=== PATIENT | male | born 1990 | race Caucasian/White ===

== ENCOUNTER 2018-06-23 00:29 | Emergency (ER) | payer SELFPAY ==
[2018-06-23] MEDS ORDERED: DIPHENHYDRAMINE HCL 50 MG/ML VIAL IM ONE (01:18)
[2018-06-23] MEDS ORDERED: HALOPERIDOL LACTATE INJ 5 MG/1 ML VIAL IM ONE (01:18)
[2018-06-23] MEDS ORDERED: LORAZEPAM INJ 2 MG/1 ML VIAL IM ONE (01:18)
--- NOTE | 2018-06-23 01:19 | ER Document Report ---
Addendum entered and electronically signed by STEVE LUDWIG DO 06/23/18 11:52: Discharge - Discharge Clinical Impression: Agitation requiring sedation protocol Alcohol intoxication Qualifiers: Complication of substance-induced condition: uncomplicated Qualified Code(s): F10.920 - Alcohol use, unspecified with intoxication, uncomplicated Condition: Stable Disposition: HOME, SELF-CARE Additional Instructions: You have been evaluated both medical and behavioral health teams have been deemed appropriate for discharge. You are highly encouraged to follow-up with substance abuse treatment. You have been provided resources of both detox and a list of area providers including mobile crisis contact information. ACUTE ALCOHOL INTOXICATION and ALCOHOL ABUSE: Your evaluation revealed very high levels of alcohol. You can from drinking a large amount of alcohol rapidly! Further, there's the risk of falls, traffic accidents, and fights. A high portion (about 50 percent) of the serious injuries seen in hospital emergency rooms are caused by alcohol. Alcohol overdosage is usually due to an underlying emotional or psychiatric problem. You may benefit from counselling. If "binge" drinking is an ongoing problem for you, or if you drink ANY AMOUNT of alcohol EVERY day, you most likely have a tendency to alcoholism. You should avoid alcohol totally. We can refer you for treatment. Persons with alcohol problems are often also prone to other addictions -- you should discuss any use of medications or drugs with the doctor. You should be watched at home for the next several hours by someone who has not been drinking. Get extra fluids for the next 24 hours. Call the doctor if there is repeated vomiting, increasing headache, decreasing level of alertness, or any other worsening. CHRONIC ALCOHOLISM and ALCOHOL ABUSE: Your evaluation reveals evidence of chronic alcoholism, an addiction to alcohol. The tendency to alcoholism may be inherited. Chronic use of alcohol weakens muscles, causes fatty deposits in the liver, damages the stomach, makes you more prone to infections, and can cause defects in unborn children. In the long run, brain atrophy and cirrhosis of the liver result. You are also at greater risk for certain types of cancer, such as cancer of the mouth, throat, stomach, and liver. Counselling services are available to help you. In-hospital treatment programs often help. Support groups such as Alcoholics Anonymous can be very useful in beating this addiction. Your physician can make a referral for you. As alcoholics often are prone to other addictions, you should discuss your use of any other medications with the doctor. ALCOHOL WITHDRAWAL: Your symptoms are caused by alcohol withdrawal. After a period of frequent drinking, the brain and body are changed by the alcohol. When you quit or reduce your drinking, the nervous system becomes unstable. Withdrawal symptoms can start a few hours after your last drink, but sometimes don't begin until a couple of days later. Symptoms can include shakiness, sweating, insomnia, nausea, vomiting, fearfulness, hallucinations, and seizures. In addition to the acute effects of alcohol withdrawal, we often have to deal with the medical effects of alcoholism. These problems often include dehydration, stomach irritation, intestinal bleeding, low blood sugar, liver disease, and pancreas inflammation. Treatment for alcohol withdrawal includes mild sedatives, vitamins, and fluids. You need to be with someone who can help if symptoms become severe. Many patients can withdraw at home. Admission to the hospital or a detox facility may be necessary if withdrawal symptoms are severe and uncontrollable. Abstaining from alcohol is the only effective long-term treatment. If you start drinking again, you will not be able to control yourself after the first drink. Treatment programs are available. In addition, many alcoholics benefit f rom Alcoholics Anonymous or other support groups available through your counselor or yazdanism cutter hand. AL-ANON and ALA-TEEN are support groups for friends and family members of an alcoholic. Go to the emergency room if you develop persistent vomiting, severe abdominal pain, fever, shortness of breath, hallucinations, uncontrollable tremors, or seizures. FOLLOW-UP CARE: If you have been referred to a physician for follow-up care, call the physicians office for an appointment as you were instructed or within the next two days. If you experience worsening or a significant change in your symptoms, notify the physician immediately or return to the Emergency Department at any time for re-evaluation. Referrals: [facility] [Outside] - Follow up as needed Addendum entered and electronically signed by VIVIANA BATES LCSWA 06/23/18 11:49: Discharge - Discharge Clinical Impression: Agitation requiring sedation protocol Alcohol intoxication Qualifiers: Complication of substance-induced condition: uncomplicated Qualified Code(s): F10.920 - Alcohol use, unspecified with intoxication, uncomplicated Condition: Stable Disposition: HOME, SELF-CARE Additional Instructions: You have been evaluated both medical and behavioral health teams have been deemed appropriate for discharge. You are highly encouraged to follow-up with substance abuse treatment. You have been provided resources of both detox and a list of area providers including mobile crisis contact information. ACUTE ALCOHOL INTOXICATION and ALCOHOL ABUSE: Your evaluation revealed very high levels of alcohol. You can from drinking a large amount of alcohol rapidly! Further, there's the risk of falls, traffic accidents, and fights. A high portion (about 50 percent) of the serious injuries seen in hospital emergency rooms are caused by alcohol. Alcohol overdosage is usually due to an underlying emotional or psychiatric problem. You may benefit from counselling. If "binge" drinking is an ongoing problem for you, or if you drink ANY AMOUNT of alcohol EVERY day, you most likely have a tendency to alcoholism. You should avoid alcohol totally. We can refer you for treatment. Persons with alcohol problems are often also prone to other addictions -- you should discuss any use of medications or drugs with the doctor. You should be watched at home for the next several hours by someone who has not been drinking. Get extra fluids for the next 24 hours. Call the doctor if there is repeated vomiting, increasing headache, decreasing level of alertness, or any other worsening. CHRONIC ALCOHOLISM and ALCOHOL ABUSE: Your evaluation reveals evidence of chronic alcoholism, an addiction to alcohol. The tendency to alcoholism may be inherited. Chronic use of alcohol weakens muscles, causes fatty deposits in the liver, damages the stomach, makes you more prone to infections, and can cause defects in unborn children. In the long run, brain atrophy and cirrhosis of the liver result. You are also at greater risk for certain types of cancer, such as cancer of the mouth, throat, stomach, and liver. Counselling services are available to help you. In-hospital treatment programs often help. Support groups such as Alcoholics Anonymous can be very useful in beating this addiction. Your physician can make a referral for you. As alcoholics often are prone to other addictions, you should discuss your use of any other medications with the doctor. ALCOHOL WITHDRAWAL: Your symptoms are caused by alcohol withdrawal. After a period of frequent drinking, the brain and body are changed by the alcohol. When you quit or reduce your drinking, the nervous system becomes unstable. Withdrawal symptoms can s tart a few hours after your last drink, but sometimes don't begin until a couple of days later. Symptoms can include shakiness, sweating, insomnia, nausea, vomiting, fearfulness, hallucinations, and seizures. In addition to the acute effects of alcohol withdrawal, we often have to deal with the medical effects of alcoholism. These problems often include dehydration, stomach irritation, intestinal bleeding, low blood sugar, liver disease, and pancreas inflammation. Treatment for alcohol withdrawal includes mild sedatives, vitamins, and fluids. You need to be with someone who can help if symptoms become severe. Many patients can withdraw at home. Admission to the hospital or a detox facility may be necessary if withdrawal symptoms are severe and uncontrollable. Abstaining from alcohol is the only effective long-term treatment. If you start drinking again, you will not be able to control yourself after the first drink. Treatment programs are available. In addition, many alcoholics benefit from Alcoholics Anonymous or other support groups available through your counselor or yazdanism cutter hand. AL-ANON and FAYE-TEEN are support groups for friends and family members of an alcoholic. Go to the emergency room if you develop persistent vomiting, severe abdominal pain, fever, shortness of breath, hallucinations, uncontrollable tremors, or seizures. FOLLOW-UP CARE: If you have been referred to a physician for follow-up care, call the physicians office for an appointment as you were instructed or within the next two days. If you experience worsening or a significant change in your symptoms, notify the physician immediately or return to the Emergency Department at any time for re-evaluation. Referrals: [facility] [Outside] - Follow up as needed Original Note: ED Psych Disorder / Suicide - General Chief Complaint: Psych Problem Stated Complaint: IVC Time Seen by Provider: 06/23/18 01:18 Mode of Arrival: Ambulatory Information source: Patient, Friend, Law Enforcement Notes: HISTORY OF PRESENT ILLNESS: Patient is a 28-year-old male with a past medical history of chronic substance abuse who presents with alcohol intoxication and combative behavior who was brought in by police after reportedly the patient broke up with his girlfriend and then threatened to harm her and other friends. Patient is currently involuntarily committed. Onset: Prior to arrival Provocation: Alcohol intoxication Quality: Agitation Radiation: Global Severity: Severe Timing: Constant SI/HI: None Hallucinations: None Current therapist: None Current treatment: None REVIEW OF SYSTEMS: CONSTITUTIONAL : Denies fever or chills, no sweats. Denies recent illness. EENT: Denies eye, ear, throat, or mouth pain or symptoms. Denies nasal or sinus congestion. CARDIOVASCULAR: Denies chest pain. RESPIRATORY: Denies cough, cold, or chest congestion. Denies shortness of breath, difficulty breathing, or wheezing. GASTROINTESTINAL: Denies abdominal pain. Denies nausea, vomiting, or diarrhea. Denies constipation. GENITOURINARY: Denies difficulty urinating, painful urination, burning, frequency, or blood in urine. FEMALE GENITOURINARY: Denies vaginal bleeding, abnormal or irregular periods. Last menstrual period MUSCULOSKELETAL: Denies neck or back pain or joint pain or swelling. SKIN: Denies rash or skin lesions. HEMATOLOGIC : Denies easy bruising or bleeding. LYMPHATIC: Denies swollen, enlarged glands. NEUROLOGICAL: Denies altered mental status or loss of consciousness. Denies headache. Denies weakness or paralysis or loss of use of either side. Denies problems with gait or speech. Denies sensory or motor loss. PSYCHIATRIC: Positive for alcohol intoxication. Positive for belligerent behavior and communicating threats. All other systems reviewed and negative. PHYSICAL EXAMINATION: GENERAL: Intoxicated-appearing and combative, well-nourished and in no acute distress. HEAD: Atraumatic, normocephalic. No scalp deformity, depression, or crepitance. EYES: Pupils are 3 mm and equal/round/reactive to light, extraocular movements intact, sclera anicteric, conjunctiva are normal. ENT: Nares patent bilaterally, oropharynx clear without exudates or palatal petechia. Moist mucous membranes. No tonsil hypertrophy. NECK: Normal range of motion, supple without lymphadenopathy. LUNGS: Breath sounds present, equal, and clear to auscultation bilaterally. No wheezes, rales, or rhonchi. HEART: Regular rate and rhythm without murmurs, rubs, or gallops. 2+ peripheral pulses. Normal capillary refill. ABDOMEN: Soft, nontender, nondistended. Normoactive bowel sounds. No guarding, no rebound. No masses appreciated. BACK: Normal contour, no midline tenderness. Rectal exam deferred. EXTREMITIES: Normal range of motion, no pitting or edema. No cyanosis. NEUROLOGICAL: No focal neurological deficits. Moves all extremities spontaneously and on command. PSYCH: Agitated mood, normal affect. No suicidal thoughts/ideations. No homocidal thoughts/ideations. No hallucinations. SKIN: Warm, dry, normal turgor, no rashes or lesions noted. ASSESSMENT AND PLAN: This patient is a 28-year-old male who presents with intoxication and agitation/combative behavior. 1. Will obtain medical clearance and maintain involuntary commitment. 2. Will observe into the morning and have patient evaluated by psychiatric team. TRAVEL OUTSIDE OF THE [place] IN LAST 30 DAYS: No - Related Data Allergies/Adverse Reactions: No Known Allergies Allergy (Unverified 06/23/18 00:36) Past Medical History - General Information source: Patient, Friend, Law Enforcement Cannot obtain history due to: Uncooperative - Social History Smoking Status: Current Every Day Smoker Chew tobacco use (# tins/day): No Frequency of alcohol use: Heavy Drug Abuse: Marijuana Lives with: Family Family History: Reviewed & Not Pertinent Patient has suicidal ideation: No Patient has homicidal ideation: No - Medical History Medical History: Negative - Past Medical History Cardiac Medical History: Reports: None Pulmonary Medical History: Reports: None EENT Medical History: Reports: None Neurological Medical History: Reports: None Endocrine Medical History: Reports: None Renal/ Medical History: Reports: None Malignancy Medical History: Reports None GI Medical History: Reports: None Musculoskeletal Medical History: Reports None Skin Medical History: Reports None Psychiatric Medical History: Reports: None Traumatic Medical History: Reports: None Infectious Medical History: Reports: None Surgical Hx: Negative Past Surgical History: Reports: None - Immunizations Immunizations up to date: Yes Hx Diphtheria, Pertussis, Tetanus Vaccination: Yes History of Influenza Vaccine for 01/2017 - 06/2017 Season: Unknown Physical Exam - Vital signs Vitals: Temp Pulse Resp BP Pulse Ox 98.4 F 105 H 16 118/78 98 06/23/18 00:35 06/23/18 00:35 06/23/18 00:35 06/23/18 00:35 06/23/18 00:35 Course - Re-evaluation Re-evalutation: 06/23/18 05:04 Patient is heavily intoxicated and will be evaluated by psychiatric team in the morning. - Vital Signs Vital signs: Temp Pulse Resp BP Pulse Ox 98.4 F 105 H 16 118/78 98 06/23/18 00:35 06/23/18 00:35 06/23/18 00:35 06/23/18 00:35 06/23/18 00:35 - Laboratory Result Diagrams: 06/23/18 01:45 06/23/18 01:45 Laboratory results interpreted by me: 06/23/18 01:45 Sodium 148.7 H BUN 4 L Glucose 127 H Salicylates < 1.0 L Acetaminophen < 10 L Serum Alcohol 334 H* - EKG Interpretation by Me EKG shows normal: Sinus rhythm Rate: Tachycardia Rhythm: NSR [place]/QRS: No: Right axis deviation, Left axis deviation, RBBB, LBBB, IVCD, LAHB/LAFB, LPHB/LPFB, Bifasicular block Voltage: No: Increased voltage, Consistant with LVH, Decreased voltage, Throughout, Limb leads P Waves: No: NAHED, LAE, Absent, AV Dissociation, Other Heart block present: No: 1st Degree, Mobitz 1, Mobitz 2, CHB (3rd degree block) When compared to previous EKG there are: Previous EKG unavailable Discharge - Discharge Clinical Impression: Agitation requiring sedation protocol Alcohol intoxication Qualifiers: Complication of substance-induced condition: uncomplicated Qualified Code(s): F10.920 - Alcohol use, unspecified with intoxication, uncomplicated Condition: Stable Disposition: PSYCH HOSP/UNIT
[2018-06-23] MEDS ORDERED: NICOTINE 21 MG/24 HR PATCH.TD24 TD ONE (01:22)
[2018-06-23 02:00] LABS: ABSOLUTE EOSINOPHILS # (AUTO) 0.1 10^3/uL (0.0-0.6); ABSOLUTE LYMPHOCYTES (AUTO) 1.8 10^3/uL (0.5-4.7); ABSOLUTE MONOCYTES (AUTO) 0.5 10^3/uL (0.1-1.4); ABSOLUTE NEUT (AUTO) 5.4 10^3/uL (1.7-8.2); BASOPHILS % (AUTO) 0.4 % (0-2); EOSINOPHILS % (AUTO) 0.7 % (0-6); HEMATOCRIT 48.3 % (37.9-51.0); HEMOGLOBIN 16.7 g/dL (13.5-17.0); LYMPHOCYTES % (AUTO) 22.7 % (13-45); MEAN CORPUSCULAR HEMOGLOBIN 32.6 pg (27.0-33.4); MEAN CORPUSCULAR HGB CONC 34.5 g/dL (32.0-36.0); MEAN CORPUSCULAR VOLUME 94 fl (80-97); MONOCYTES % (AUTO) 6.3 % (3-13); PLATELET COUNT 301 10^3/uL (150-450); RED BLOOD COUNT 5.12 10^6/uL (4.35-5.55); RED CELL DISTRIBUTION WIDTH 13.1 % (11.5-14.0); SEGMENTED NEUTROPHILS % (AUTO) 69.9 % (42-78); TOTAL CELLS COUNTED % (AUTO) 100 %; WHITE BLOOD COUNT 7.7 10^3/uL (4.0-10.5)
[2018-06-23 02:15] LABS: ACETAMINOPHEN < 10 ug/mL (10-30); ALANINE AMINOTRANSFERASE 42 U/L (21-72); ALBUMIN 4.8 g/dL (3.5-5.0); ALKALINE PHOSPHATASE 104 U/L (38-126); ANION GAP 17 (5-19); ASPARTATE AMINO TRANSFERASE 47 U/L (17-59); BILIRUBIN,DIRECT 0.3 mg/dL (0.0-0.4); BILIRUBIN,TOTAL 0.3 mg/dL (0.2-1.3); BLOOD UREA NITROGEN 4 mg/dL (7-20); CALCIUM 9.5 mg/dL (8.4-10.2); CARBON DIOXIDE 25 mmol/L (22-30); CHLORIDE 107 mmol/L (98-107); GLUCOSE 127 mg/dL (75-110); POTASSIUM 4.3 mmol/L (3.6-5.0); SALICYLATE < 1.0 mg/dL (2.0-20.0); SODIUM 148.7 mmol/L (137-145); TOTAL PROTEIN 6.9 g/dL (6.3-8.2)
[2018-06-23 02:40] LABS: ALCOHOL 334 mg/dL (NONE DETECTED)
[2018-06-23 10:55] LABS: APPEARANCE,URINE CLEAR; BILIRUBIN,URINE NEGATIVE (NEGATIVE); COLOR,URINE YELLOW; GLUCOSE, URINE NEGATIVE (NEGATIVE); KETONES,URINE NEGATIVE (NEGATIVE); LEUKOCYTE ESTERASE,URINE NEGATIVE (NEGATIVE); NITRITE,URINE NEGATIVE (NEGATIVE); PROTEIN,URINE NEGATIVE (NEGATIVE); URINE SPECIFIC GRAVITY 1.012; UROBILINOGEN,URINE NEGATIVE mg/dL (<2.0)
[2018-06-23 11:17] LABS: URINE AMPHETAMINES SCREEN NEGATIVE; URINE BARBITURATES SCREEN NEGATIVE; URINE BENZODIAZEPINES SCREEN NEGATIVE; URINE COCAINE SCREEN NEGATIVE; URINE MARIJUANA (THC) SCREEN UNCONFIRMED POSITIVE; URINE METHADONE SCREEN NEGATIVE; URINE PHENCYCLIDINE SCREEN NEGATIVE
--- NOTE | 2018-06-23 11:51 | ER Document Report ---
Doctor's Note Notes: 06/23/18 11:49 Patient seen and examined. He was brought in ER for alcohol intoxication last night. He is not very forthcoming with his history. I do strongly suspect a history of alcohol dependence and abuse. He is not interested currently in detox at this time. His sister is here. She is asking about outpatient luis m atments. She feels safe bringing him home and the patient feel safe being discharged. Pupils are equal, round, reactive to light. No tremor, skin is warm and dry. Heart is regular rate and rhythm, lungs are clear to auscultation bilaterally. Patient has a mildly defensive stance, short answers, but is cooperative with examiner. Plan is to discharge patient. He is not interested in inpatient rehabilitation at this time. He is given instructions regarding alcohol dependence. At this time he still does meet the legal definition of intoxication, but he is appropriate and family feels comfortable taking him home. He is to return to the ED with worsening or new concerning symptoms of any sort.
[2018-06-23 12:15] VITALS: BP 115/81
--- NOTE | 2018-06-23 16:37 | PSYCHOLOGICAL NOTE ---
Psych Note - Psych Note Date seen by psych provider: 06/23/18 Time seen by psych provider: 11:00 Psych Note: Reason for consult: IVC Patient is a 28-year-old male with a past medical history of chronic substance abuse who presents with alcohol intoxication and combative behavior who was brought in by police after reportedly the patient broke up with his girlfriend and then threatened to harm her and other friends. Patient reports he is fairly sure that he came to [facility] because of suicidal ideation. He states that "they said I had a knife." He confirms that he did and remembers having a knife however denies threatening anybody or himself with it. He reports that his girlfriend said that he was suicidal however adamantly denies he said anything to indicate he wanted to harm himself. Patient denies having any mental health diagnosis. Clinician spoke with patient's sister. She requests additional assistance on substance abuse treatment, and sober living for the patient. She confirms she will transport patient home; she denies having any further concerns. Patient is alert and orientated to person, place, time and circumstance. Mood is euthymic with congruent affect. Patient denies suicidal and homicidal ideation; clinician notes patient is no longer under the influence. Delusions are absent behaviors congruent with intact reality based presentation i.e. organized and linear thought process. Eye contact is well-maintained. Conversational speech is within normal rate, tone and prosody. Intellectual abilities appear to be within the average range. Attention and concentration are fair. Insight, judgment, impulse control are fair. No medication recommendations at this time Substance abuse; alcohol Impression\\plan: Patient is recommended for rescind of IVC and is cleared from acute psychiatric services. He no longer meets IVC criteria per [place] GS 122C. Patient is no longer the influence and denies suicidal homicidal ideation. Patient reports that while he did have a knife in his hand he at no time threatened to harm himself or others. He reports that his girlfriend and he were an argument. Patient's sister requests substance abuse treatment information; this was provided. Patient agrees to discuss with his family recei [facility] substance abuse treatment, he declined assistance from clinician. Dr. Gorman was consulted and the care management this patient; attending physicians in agreement with recommendations and disposition.
--- NOTE | 2018-06-23 19:18 | EKG REPORT ---
SEVERITY:- BORDERLINE ECG - SINUS TACHYCARDIA VENTRICULAR PREMATURE COMPLEX RIGHT AXIS DEVIATION : Confirmed by: Violeta Morin MD 23-Jun-2018 19:17:08
== END 2018-06-23 12:15 | disposition home or self-care (01) ==
LOC: ER 00:29
DX: F10.120 Alcohol abuse with intoxication, uncomplicated (principal); R45.1 Restlessness and agitation; F17.200 Nicotine dependence, unspecified, uncomplicated; F12.10 Cannabis abuse, uncomplicated; R00.0 Tachycardia, unspecified
CPT/HCPCS: 93005; 99285; 96372; 36415; 80307 ×4; 85025; 80053; 81001; 93010; J1200; J1630; J2060

== ENCOUNTER 2019-02-11 13:06 | Emergency (ER) | payer OTHER ==
--- NOTE | 2019-02-11 14:26 | ER Document Report ---
ED Medical Screen (RME) - General Chief Complaint: Alcohol Withdrawl Stated Complaint: DETOX Time Seen by Provider: 02/11/19 14:16 Notes: 28-year-old male presents to the emergency department requesting help for alcoholism. He states that his last drink was last night and he typically drinks "whatever I can get my hands on". Lately it is been about 3 bottles of wine a day but just prior to that he was drinking hard liquor. Patient is very slow to respond and staring off into the distance. Patient states he has been drinking heavily since he was 16 or 17 years old. Patient does not have a good social support system. Exam: Patient appears unkempt and has very poor eye contact, patient's speech is delayed but answers questions appropriately, patient is tachycardic, no asterixis NEURO: A &O X 3, normal speech, normal gait, PERRL, EOMI, SILT, follows commands in all 4 extremities, no gross abnormalities of cranial nerves, no focal neuro deficits, no pronator drift, [id number] testing normal, [id number] normal, banking and finance instructor strength 5/5 bilateral, 5/5 strength in both proximal and distal upper and lower extremities I have greeted and performed a rapid initial assessment of this patient. A comprehensive ED assessment and evaluation of the patient, analysis of test results and completion of medical decision making process will be conducted by an additional ED providers. TRAVEL OUTSIDE OF THE [place] IN LAST 30 DAYS: No - Related Data Allergies/Adverse Reactions: No Known Allergies Allergy (Unverified 06/23/18 00:36) Past Medical History - Social History Frequency of alcohol use: Heavy Drug Abuse: None Renal/ Medical History: Denies: Hx Peritoneal Dialysis - Immunizations Immunizations up to date: Yes Hx Diphtheria, Pertussis, Tetanus Vaccination: Yes Physical Exam - Vital signs Vitals: Temp Pulse Resp BP Pulse Ox 97.8 F 108 H 18 128/82 H 95 02/11/19 13:29 02/11/19 13:29 02/11/19 13:29 02/11/19 13:29 02/11/19 13:29 Course - Vital Signs Vital signs: Temp Pulse Resp BP Pulse Ox 97.8 F 108 H 18 128/82 H 95 02/11/19 13:29 02/11/19 13:29 02/11/19 13:29 02/11/19 13:29 02/11/19 13:29
[2019-02-11] MEDS ORDERED: FOLIC ACID 1 MG TABLET PO ONE (14:27)
[2019-02-11] MEDS ORDERED: THIAMINE HCL 100 MG TABLET PO ONE (14:27)
[2019-02-11] MEDS ORDERED: DIAZEPAM INJ 10 MG/2 ML DISP.SYRIN IV ONE (14:28)
[2019-02-11] MEDS: NORMAL SALINE 1000 ML 1,000 ML IV PRN ×2 (15:12→15:54)
[2019-02-11 15:39] LABS: ABSOLUTE BASOPHILS # (AUTO) 0.1 10^3/uL (0.0-0.2); ABSOLUTE MONOCYTES (AUTO) 0.4 10^3/uL (0.1-1.4); ABSOLUTE NEUT (AUTO) 6.3 10^3/uL (1.7-8.2); BASOPHILS % (AUTO) 0.7 % (0-2); EOSINOPHILS % (AUTO) 0.6 % (0-6); HEMATOCRIT 46.7 % (37.9-51.0); HEMOGLOBIN 16.1 g/dL (13.5-17.0); LYMPHOCYTES % (AUTO) 12.9 % (13-45); MEAN CORPUSCULAR HEMOGLOBIN 31.3 pg (27.0-33.4); MEAN CORPUSCULAR HGB CONC 34.6 g/dL (32.0-36.0); MEAN CORPUSCULAR VOLUME 90 fl (80-97); MONOCYTES % (AUTO) 5.3 % (3-13); PLATELET COUNT 219 10^3/uL (150-450); RED BLOOD COUNT 5.16 10^6/uL (4.35-5.55); RED CELL DISTRIBUTION WIDTH 12.6 % (11.5-14.0); SEGMENTED NEUTROPHILS % (AUTO) 80.5 % (42-78); TOTAL CELLS COUNTED % (AUTO) 100 %; WHITE BLOOD COUNT 7.9 10^3/uL (4.0-10.5)
[2019-02-11 15:43] LABS: INTERNATIONAL RATION (INR) 0.91; PROTHROMBIN TIME 12.2 SEC (11.4-15.4)
--- NOTE | 2019-02-11 15:44 | ER Document Report ---
ED Substance Abuse / Acc. OD <KATLIN PUENTES - Last Filed: 02/11/19 16:26> - General Mode of Arrival: Medic Information source: Patient TRAVEL OUTSIDE OF THE U.[place]. IN LAST 30 DAYS: No - HPI Patient complains to provider of: Alcohol abuse Onset: Last week Onset/Duration: Persistent Quality of pain: No pain Associated Symptoms: Nausea/vomiting, Tremors. denies: Chest pain/discomfort, Hurts to breathe, Diarrhea, Seizure, Headache Similar symptoms previously: Yes Recently seen / treated by doctor: No <LAURIE HADLEY - Last Filed: 02/11/19 20:19> - General Chief Complaint: Alcohol Withdrawl Stated Complaint: DETOX Time Seen by Provider: 02/11/19 14:16 Notes: Patient presents requesting treatment for detox from alcohol use. Patient states he last drank yesterday. Patient states that he has been having heavy alcohol use daily for the past week. Patient denies any suicidal homicidal ideation. Patient states he has had nausea and vomited at home although denies any current nausea or vomiting at this time. Patient denies any headache. Patient complains of some tremors. Patient denies any substance abuse. Patient repeatedly requesting Ativan to be given. (LAURIE HADLEY) - Related Data Allergies/Adverse Reactions: No Known Allergies Allergy (Unverified 06/23/18 00:36) Past Medical History - General Information source: Patient - Social History Smoking Status: Current Every Day Smoker Frequency of alcohol use: Heavy Drug Abuse: None Occupation: HVAC Lives with: Family Family History: Reviewed & Not Pertinent Patient has suicidal ideation: No Patient has homicidal ideation: No - Medical History Medical History: Negative Renal/ Medical History: Denies: Hx Peritoneal Dialysis Surgical Hx: Negative - Immunizations Immunizations up to date: Yes Hx Diphtheria, Pertussis, Tetanus Vaccination: Yes <LAURIE HADLEY - Last Filed: 02/11/19 20:19> Review of Systems - Review of Systems Constitutional: No symptoms reported. denies: Fever, Recent illness EENT: No symptoms reported Cardiovascular: No symptoms reported. denies: Chest pain Respiratory: No symptoms reported. denies: Cough Gastrointestinal: Nausea, Vomiting. denies: Abdominal pain Genitourinary: No symptoms reported Male Genitourinary: No symptoms reported Musculoskeletal: No symptoms reported. denies: Back pain Skin: No symptoms reported Hematologic/Lymphatic: No symptoms reported Neurological/Psychological: Tremor. denies: Weakness, Headaches <LAURIE HADLEY - Last Filed: 02/11/19 20:19> Physical Exam - General General appearance: Appears well, Alert In distress: None - HEENT Head: Normocephalic, Atraumatic Eyes: Normal Conjunctiva: Normal Nasal: Normal Mouth/Lips: Normal Mucous membranes: Normal Neck: Normal, Supple. No: Lymphadenopathy - Respiratory Respiratory status: No respiratory distress Chest status: Nontender Breath sounds: Normal. No: Rales, Rhonchi, Stridor, Wheezing Chest palpation: Normal - Cardiovascular Rhythm: Regular Heart sounds: S1 appreciated, S2 appreciated Murmur: No - Abdominal Inspection: Normal Distension: No distension Bowel sounds: Normal Tenderness: Nontender - Back Back: Normal, Nontender. No: CVA tenderness - Extremities General upper extremity: Normal inspection, Normal ROM General lower extremity: Normal inspection, Normal ROM - Neurological Neuro grossly intact: Yes Cognition: Normal Chaya Coma Scale Eye Opening: Spontaneous Chaya Coma Scale Verbal: Oriented [place] Coma Scale Motor: Obeys Commands [place] Coma Scale Total: 15 Additional motor exam normals: Other - Mild tremor noted to extremities - Psychological Associated symptoms: Normal affect, Normal mood - Skin Skin Temperature: Warm Skin Moisture: Dry Skin Color: Normal <LAURIE HADLEY - Last Filed: 02/11/19 20:19> - Vital signs Vitals: Temp Pulse Resp BP Pulse Ox 97.8 F 108 H 18 128/82 H 95 02/11/19 13:29 02/11/19 13:29 02/11/19 13:29 02/11/19 13:29 02/11/19 13:29 Course - Laboratory Result Diagrams: 02/11/19 15:17 02/11/19 15:17 <KATLIN PUENTES - Last Filed: 02/11/19 16:26> - Laboratory Result Diagrams: 02/11/19 15:17 02/11/19 15:17 - EKG Interpretation by Tn EKG shows normal: Sinus rhythm Rate: Normal <LAURIE HADLEY - Last Filed: 02/11/19 20:19> - Re-evaluation Re-evalutation: 02/11/19 16:03 Patient was provided with warm blankets and visual tremors resolved. Mental health team evaluated patient to offer him resource information. Patient states he does not want information on detox and does not want to go to detox facility. Provider inquired as to what patient wanted for him today as it was our understanding that he was here for help with detoxing from alcoholism. Patient states he just wants to feel better and he wants help with the shaking and nausea symptoms. Patient insistent that he does not want to go to detox. Patient with a CIWA score of 3 02/11/19 16:41 Patient pulled IV out and states that he was to be discharged at this time. Patient clinically sober at this time, no slurring of speech, normal gait. Patient reports last alcohol intake was yesterday. Patient did not drive. He came by EMS. Patient will be given outpatient detox resources. Patient told nurse that he only came for a prescription for Ativan. 02/11/19 20:16 02/11/19 20:19 (LAURIE HADLEY) - Vital Signs Vital signs: Temp Pulse Resp BP Pulse Ox 98.7 F 101 H 18 134/69 H 99 02/11/19 16:11 02/11/19 16:11 02/11/19 16:11 02/11/19 16:11 02/11/19 16:11 - Laboratory Laboratory results interpreted by me: 02/11/19 02/11/19 15:17 15:17 Lymph % (Auto) 12.9 L Seg Neutrophils % 80.5 H Magnesium 1.5 L Alkaline Phosphatase 142 H 02/11/19 16:42 Labs- Entire Visit 02/11/19 02/11/19 02/11/19 15:17 15:17 15:17 WBC 7.9 RBC 5.16 Hgb 16.1 Hct 46.7 MCV 90 MCH 31.3 MCHC 34.6 RDW 12.6 Plt Count 219 Lymph % (Auto) 12.9 L [place] % (Auto) 5.3 Eos % (Auto) 0.6 Baso % (Auto) 0.7 Absolute Neuts (auto) 6.3 Absolute Lymphs (auto) 1.0 Absolute Monos (auto) 0.4 Absolute Eos (auto) 0.0 Absolute Basos (auto) 0.1 Seg Neutrophils % 80.5 H PT 12.2 INR 0.91 Sodium 139.5 Potassium 4.0 Chloride 100 Carbon Dioxide 25 Anion Gap 15 BUN 11 Creatinine 0.85 Est GFR ( Amer) > 60 Est GFR (MDRD) Non-Af > 60 Glucose 87 Calcium 8.9 Magnesium 1.5 L Total Bilirubin 0.6 Direct Bilirubin 0.1 Neonat Total Bilirubin Not Reportable Neonat Direct Bilirubin Not Reportable Neonat Indirect Bili Not Reportable AST 46 ALT 46 Alkaline Phosphatase 142 H Total Protein 7.1 Albumin 4.3 (LAURIE HADLEY) - EKG Interpretation by Me Additional EKG results interpreted by me: 02/11/19 16:[address] elevation, no T wave inversion, QTC 414 (LAURIE HADLEY) Discharge <KATLIN PUENTES - Last Filed: 02/11/19 16:26> <JOMARJESSICALUIS - Last Filed: 02/11/19 20:19> - Discharge Clinical Impression: Alcohol abuse Condition: Stable Disposition: HOME, SELF-CARE Additional Instructions: Follow-up with a detox facility from list provided. Return as needed for any new or worsening symptoms ACUTE ALCOHOL INTOXICATION and ALCOHOL ABUSE: Your evaluation revealed very high levels of alcohol. You can from drinking a large amount of alcohol rapidly! Further, there's the risk of falls, traffic accidents, and fights. A high portion (about 50 percent) of the serious injuries seen in hospital emergency rooms are caused by alcohol. Alcohol overdosage is usually due to an underlying emotional or psychiatric problem. You may benefit from counselling. If "binge" drinking is an ongoing problem for you, or if you drink ANY AMOUNT of alcohol EVERY day, you most likely have a tendency to alcoholism. You should avoid alcohol totally. We can refer you for treatment. Persons with alcohol problems are often also prone to other addictions -- you should discuss any use of medications or drugs with the doctor. You should be watched at home for the next several hours by someone who has not been drinking. Get extra fluids for the next 24 hours. Call the doctor if there is repeated vomiting, increasing headache, decreasing level of alertness, or any other worsening. CHRONIC ALCOHOLISM and ALCOHOL ABUSE: Your evaluation reveals evidence of chronic alcoholism, an addiction to alcohol. The tendency to alcoholism may be inherited. Chronic use of alcohol weakens muscles, causes fatty deposits in the liver, damages the stomach, makes you more prone to infections, and can cause defects in unborn children. In the long run, brain atrophy and cirrhosis of the liver result. You are also at greater risk for certain types of cancer, such as cancer of the mouth, throat, stomach, and liver. Counselling services are available to help you. In-hospital treatment programs often help. Support groups such as Alcoholics Anonymous can be very useful in beating this addiction. Your physician can make a referral for you. As alcoholics often are prone to other addictions, you should discuss your use of any other medications with the doctor. ALCOHOL WITHDRAWAL: Your symptoms are caused by alcohol withdrawal. After a period of frequent drinking, the brain and body are changed by the alcohol. When you quit or reduce your drinking, the nervous system becomes unstable. Withdrawal symptoms can start a few hours after your last drink, but sometimes don't begin until a couple of days later. Symptoms can include shakiness, sweating, insomnia, nausea, vomiting, fearfulness, hallucinations, and seizures. In addition to the acute effects of alcohol withdrawal, we often have to deal with the medical effects of alcoholism. These problems often include dehy dration, stomach irritation, intestinal bleeding, low blood sugar, liver disease, and pancreas inflammation. Treatment for alcohol withdrawal includes mild sedatives, vitamins, and fluids. You need to be with someone who can help if symptoms become severe. Many patients can withdraw at home. Admission to the hospital or a detox facility may be necessary if withdrawal symptoms are severe and uncontrollable. Abstaining from alcohol is the only effective long-term treatment. If you start drinking again, you will not be able to control yourself after the first drink. Treatment programs are available. In addition, many alcoholics benefit from Alcoholics Anonymous or other support groups available through your counselor or amish rayon tester. AL-ANON and ALA-TEEN are support groups for fr iends and family members of an alcoholic. Go to the emergency room if you develop persistent vomiting, severe abdominal pain, fever, shortness of breath, hallucinations, uncontrollable tremors, or seizures.
[2019-02-11 15:54] LABS: ALBUMIN 4.3 g/dL (3.5-5.0); ALKALINE PHOSPHATASE 142 U/L (38-126); ANION GAP 15 (5-19); ASPARTATE AMINO TRANSFERASE 46 U/L (17-59); BILIRUBIN,DIRECT 0.1 mg/dL (0.0-0.4); BILIRUBIN,TOTAL 0.6 mg/dL (0.2-1.3); BLOOD UREA NITROGEN 11 mg/dL (7-20); CALCIUM 8.9 mg/dL (8.4-10.2); CARBON DIOXIDE 25 mmol/L (22-30); CHLORIDE 100 mmol/L (98-107); GLUCOSE 87 mg/dL (75-110); TOTAL PROTEIN 7.1 g/dL (6.3-8.2)
[2019-02-11] MEDS ORDERED: MAGNESIUM OXIDE 400 MG TABLET PO ONE (16:02)
[2019-02-11 16:12] VITALS: BP 134/69
--- NOTE | 2019-02-11 16:26 | PSYCHOLOGICAL NOTE ---
Psych Note - Psych Note Date seen by psych provider: 02/11/19 Time seen by psych provider: 15:45 Psych Note: Reason for consult: Alcohol Withdrawal Patient was brought to ED via EMS. Patient was resting in the bed when clinician entered room. Patient reported he relapsed when his grandmother . Patient stated he did fine when he lived in a sober living facility. Patient initially agreed to accept referral to substance abuse facility, however suddenly declined referral. Patient stated he just wants help with shaking and bad anxiety. Patient was advised this is an acute emergency department, and this facility is not a medical detox facility. Discussed the need to engage in individual therapy to cultivate coping skills and to help him process through the grief related to the of his grandmother. Patient is alert and oriented to person, place, time and circumstance. Mood is depressed and behavior is congruent with circumstances. Patient endorses suicidal ideation, however denies homicidal ideation. Delusions are absent and behavior is congruent with an intact- reality based presentation (i.e. organized and linear thought processes). Patient denies auditory and visual hallucinations. There is no observed behavior that suggests patient is responding to internal stimuli. Eye contact is good. Conversational speech is within normal rate, tone, and prosody. Intellectual ability appears to be within average range. Attention and concentration are fair. Insight, judgment, and impulse control are fair. DSM Diagnosis: Alcohol Use Disorder Medication recommendations per [facility] contracted psychiatrist Dr. Leeanna LOWE is as follows: NONE Impression/Plan: Patient is cleared from acute psychiatric services. Patient does not meet IVC criteria per CT GS 122C. At this time, patient is declining referral services. Resource list of detox facilities and community outpatient mental health resource list was provided to attending physician in the event patient changes his mind. Dr. Gorman was consulted on the care and management of this patient; attending physician is in agreement with recommendations and disposition.
== END 2019-02-11 16:55 | disposition home or self-care (01) ==
LOC: ER 13:06
DX: F10.10 Alcohol abuse, uncomplicated (principal); R11.2 Nausea with vomiting, unspecified; R25.1 Tremor, unspecified; F17.200 Nicotine dependence, unspecified, uncomplicated; Z63.4 Disappearance and death of family member
CPT/HCPCS: 99285; 96361; 96374; 36415; 83735; 85025; 85610; 80053; J3360; J7030

== ENCOUNTER 2019-07-11 14:34 | Emergency (ER) | payer SELFPAY ==
[2019-07-11] MEDS ORDERED: NICOTINE 21 MG/24 HR PATCH.TD24 TD ONE (14:59)
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
[2019-07-11] MEDS ORDERED: DIAZEPAM 5 MG TABLET PO ONE (15:54)
[2019-07-11 16:06] LABS: ABSOLUTE EOSINOPHILS # (AUTO) 0.1 10^3/uL (0.0-0.6); ABSOLUTE LYMPHOCYTES (AUTO) 1.2 10^3/uL (0.5-4.7); ABSOLUTE MONOCYTES (AUTO) 0.8 10^3/uL (0.1-1.4); ABSOLUTE NEUT (AUTO) 4.9 10^3/uL (1.7-8.2); BASOPHILS % (AUTO) 0.5 % (0-2); EOSINOPHILS % (AUTO) 1.2 % (0-6); HEMATOCRIT 44.6 % (37.9-51.0); HEMOGLOBIN 16.1 g/dL (13.5-17.0); LYMPHOCYTES % (AUTO) 17.5 % (13-45); MEAN CORPUSCULAR HEMOGLOBIN 34.3 pg (27.0-33.4); MEAN CORPUSCULAR VOLUME 95 fl (80-97); MONOCYTES % (AUTO) 11.8 % (3-13); PLATELET COUNT 180 10^3/uL (150-450); RED BLOOD COUNT 4.69 10^6/uL (4.35-5.55); RED CELL DISTRIBUTION WIDTH 13.4 % (11.5-14.0); TOTAL CELLS COUNTED % (AUTO) 100 %; WHITE BLOOD COUNT 7.1 10^3/uL (4.0-10.5)
[2019-07-11 16:15] LABS: ACETAMINOPHEN < 10 ug/mL (10-30); ALBUMIN 4.6 g/dL (3.5-5.0); ALCOHOL < 10 mg/dL (NONE DETECTED); ALKALINE PHOSPHATASE 104 U/L (38-126); ANION GAP 10 (5-19); ASPARTATE AMINO TRANSFERASE 97 U/L (17-59); BILIRUBIN,DIRECT 0.3 mg/dL (0.0-0.4); BILIRUBIN,TOTAL 0.9 mg/dL (0.2-1.3); BLOOD UREA NITROGEN 10 mg/dL (7-20); CALCIUM 9.5 mg/dL (8.4-10.2); CARBON DIOXIDE 29 mmol/L (22-30); CHLORIDE 96 mmol/L (98-107); GLUCOSE 85 mg/dL (75-110); POTASSIUM 3.7 mmol/L (3.6-5.0); SALICYLATE < 1.0 mg/dL (2.0-20.0); TOTAL PROTEIN 7.9 g/dL (6.3-8.2)
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
[2019-07-11 16:27] LABS: APPEARANCE,URINE SLIGHTLY-CLOUDY; BILIRUBIN,URINE NEGATIVE (NEGATIVE); CALCIUM OXALATE CRYSTALS,URINE FEW /HPF; COLOR,URINE AMBER; GLUCOSE, URINE NEGATIVE (NEGATIVE); KETONES,URINE NEGATIVE (NEGATIVE); LEUKOCYTE ESTERASE,URINE NEGATIVE (NEGATIVE); NITRITE,URINE NEGATIVE (NEGATIVE); PROTEIN,URINE 30 mg/dL (NEGATIVE); URINE SPECIFIC GRAVITY 1.023
[2019-07-11 16:32] LABS: URINE AMPHETAMINES SCREEN NEGATIVE; URINE BARBITURATES SCREEN NEGATIVE; URINE BENZODIAZEPINES SCREEN NEGATIVE; URINE COCAINE SCREEN NEGATIVE; URINE MARIJUANA (THC) SCREEN NEGATIVE; URINE METHADONE SCREEN NEGATIVE; URINE PHENCYCLIDINE SCREEN NEGATIVE
--- NOTE | 2019-07-11 21:36 | EKG REPORT ---
SEVERITY:- BORDERLINE ECG - SINUS RHYTHM CONSIDER RIGHT VENTRICULAR HYPERTROPHY : Confirmed by: Al Muller MD 11-Jul-2019 21:35:33
[2019-07-11] MEDS ORDERED: LORAZEPAM INJ 2 MG/1 ML VIAL IM ONE (22:10)
[2019-07-12 11:25] VITALS: BP 131/87
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
== END 2019-07-12 11:00 | disposition home or self-care (01) ==
LOC: ER 14:34
DX: F10.239 Alcohol dependence with withdrawal, unspecified (principal); R44.2 Other hallucinations; R00.0 Tachycardia, unspecified; F17.210 Nicotine dependence, cigarettes, uncomplicated
CPT/HCPCS: 93005; 99291; 96372; 36415; 80307 ×4; 85025; 80053; 81001; 93010; J2060

== ENCOUNTER 2019-10-17 10:40 | Emergency (ER) | payer SELFPAY ==
[2019-10-17 10:46] VITALS: BP 136/90
[2019-10-17] MEDS ORDERED: LIDOCAINE 1% INJ-PF (10 MG/ML) 30 ML SDV INJ ONE (10:57)
[2019-10-17] MEDS ORDERED: DIPH/PERTUSS(ACELL)/TETANUS VAC/PF 0.5 ML SYR (>=10YO) IM ONE (10:57)
--- NOTE | 2019-10-17 11:02 | ER Document Report ---
HPI - HPI Time Seen by Provider: 10/17/19 10:40 Onset: Just prior to arrival Onset/Duration: Sudden Quality of pain: Achy Pain Level: 1 Context: Patient presents with laceration to left wrist area. Patient was at work and cut it on sheet metal. Patient is uncertain when last tetanus immunization was. Associated Symptoms: Other - Left wrist laceration Exacerbated by: Movement Relieved by: Denies Similar symptoms previously: No Recently seen / treated by doctor: No - ROS ROS below otherwise negative: Yes Systems Reviewed and Negative: Yes All other systems reviewed and negative - NEURO Neurology: DENIES: Weakness - MUSCULOSKELETAL Musculoskeletal: REPORTS: Extremity pain - DERM Skin Color: Normal Skin Problems: Laceration Past Medical History - General Information source: Patient - Social History Smoking Status: Current Every Day Smoker Frequency of alcohol use: None Drug Abuse: None Occupation: HV[employer] Family History: Reviewed & Not Pertinent - Medical History Medical History: Negative Renal/ Medical History: Denies: Hx Peritoneal Dialysis Past Surgical History: Reports: Hx Abdominal Surgery - hernia repair - Immunizations Immunizations up to date: Yes Vertical Provider Document - CONSTITUTIONAL Agree With Documented VS: Yes Exam Limitations: No Limitations General Appearance: WD/WN, No Apparent Distress - INFECTION CONTROL TRAVEL OUTSIDE OF THE [place] IN LAST 30 DAYS: No - HEENT HEENT: Atraumatic, Normocephalic - NECK Neck: Normal Inspection, Supple. negative: Lymphadenopathy-Left - RESPIRATORY Respiratory: Breath Sounds Normal, No Respiratory Distress - CARDIOVASCULAR Cardiovascular: Regular Rate, Regular Rhythm - BACK Back: Normal Inspection - MUSCULOSKELETAL/EXTREMETIES Musculoskeletal/Extremeties: MAEW, FROM - NEURO Level of Consciousness: Awake, Alert, Appropriate Motor/Sensory: No Motor Deficit, No Sensory Deficit - DERM Integumentary: Warm, Dry, Laceration - 2 cm irregular laceration to ulnar aspect of distal left forearm Course - Vital Signs Vital signs: Temp Pulse Resp BP Pulse Ox 99.4 F 103 H 16 136/90 H 97 10/17/19 10:44 10/17/19 10:44 10/17/19 10:44 10/17/19 10:44 10/17/19 10:44 Procedures - Laceration/Wound Repair Left Arm Wound length (cm): 2 Wound's Depth, Shape: Irregular Laceration pre-procedure: Murphy-Clens applied Anesthetic type: 1% Lidocaine Volume Anesthetic (mLs): 1 Wound explored: Clean Wound Repaired With: Sutures Suture Size/Type: 5:0, Nylon Number of Sutures: 4 Layer Closure?: No Post-procedure wound care: Sterile dressing applied Post-procedure NV exam normal: Yes Complications: No Adult Front & Back picture: 1 - lac Discharge - Discharge Clinical Impression: Laceration of left forearm Qualifiers: Encounter type: initial encounter Qualified Code(s): S51.812A - Laceration without foreign body of left forearm, initial encounter Condition: Stable Disposition: HOME, SELF-CARE Instructions: Laceration Care ([facility]), Tetanus Immunization Given ([facility]) Additional Instructions: Return immediately for any new or worsening symptoms Followup with your primary care provider, call tomorrow to make a followup appointment Suture removal in 10 days Forms: Return to Work Referrals: [facility] [Provider Group] - Follow up as needed
== END 2019-10-17 11:45 | disposition home or self-care (01) ==
LOC: ER 10:40
DX: S61.512A Laceration without foreign body of left wrist, initial encounter (principal); W26.9XXA Contact with unspecified sharp object(s), initial encounter; Z23 Encounter for immunization; F17.200 Nicotine dependence, unspecified, uncomplicated
CPT/HCPCS: 99282; 90471; 90715; 12001; J3490

== ENCOUNTER 2019-10-29 12:31 | Emergency (ER) | payer SELFPAY ==
[2019-10-29 12:40] VITALS: BP 135/80
--- NOTE | 2019-10-29 13:04 | ER Document Report ---
ED Suture/Wound Recheck - General Chief Complaint: Suture Removal Stated Complaint: SUTURE REMOVAL Time Seen by Provider: 10/29/19 12:58 Mode of Arrival: Ambulatory Information source: Patient TRAVEL OUTSIDE OF THE [place] IN LAST 30 DAYS: No - HPI Patient complains to provider of: Suture removal Previous ED treatment: Laceration repair Quality of pain: No pain Notes: 29-year-old male presented today to have sutures removed from a 2 cm wound to his left lateral wrist. The sutures have been in place for 9 days he has pink edges good approximation no drainage no discharge no nausea no vomiting no fever. - Related Data Allergies/Adverse Reactions: No Known Allergies Allergy (Unverified 06/23/18 00:36) Past Medical History - General Information source: Patient - Social History Smoking Status: Never Smoker Cigarette use (# per day): No Chew tobacco use (# tins/day): No Smoking Education Provided: No Frequency of alcohol use: None Drug Abuse: None Family History: Reviewed & Not Pertinent Renal/ Medical History: Denies: Hx Peritoneal Dialysis Past Surgical History: Reports: Hx Abdominal Surgery - hernia repair - Immunizations Immunizations up to date: Yes Review of Systems - Review of Systems Constitutional: No symptoms reported EENT: No symptoms reported Cardiovascular: No symptoms reported Respiratory: No symptoms reported Gastrointestinal: No symptoms reported Genitourinary: No symptoms reported Male Genitourinary: No symptoms reported Musculoskeletal: No symptoms reported Skin: No symptoms reported Hematologic/Lymphatic: No symptoms reported Neurological/Psychological: No symptoms reported Physical Exam - Vital signs Vitals: Temp Pulse Resp BP Pulse Ox 99.0 F 95 16 135/80 H 97 10/29/19 12:37 10/29/19 12:37 10/29/19 12:37 10/29/19 12:37 10/29/19 12:37 Interpretation: Normal - General General appearance: Appears well, Alert - HEENT Head: Normocephalic, Atraumatic Eyes: Normal Pupils: PERRL - Respiratory Respiratory status: No respiratory distress Chest status: Nontender Breath sounds: Normal Chest palpation: Normal - Cardiovascular Rhythm: Regular Heart sounds: Normal auscultation Murmur: No - Abdominal Inspection: Normal Distension: No distension Bowel sounds: Normal Tenderness: Nontender Organomegaly: No organomegaly - Back Back: Normal, Nontender - Extremities General upper extremity: Normal inspection, Nontender, Normal color, Normal ROM, Normal temperature General lower extremity: Normal inspection, Nontender, Normal color, Normal ROM, Normal temperature, Normal weight bearing. No: Nikos's sign - Neurological Neuro grossly intact: Yes Cognition: Normal Orientation: AAOx4 Tappen Coma Scale Eye Opening: Spontaneous Chaya Coma Scale Verbal: Oriented Tappen Coma Scale Motor: Obeys Commands Chaya Coma Scale Total: 15 Speech: Normal Motor strength normal: LUE, RUE, LLE, RLE Sensory: Normal - Psychological Associated symptoms: Normal affect, Normal mood - Skin Skin Temperature: Warm Skin Moisture: Dry Skin Color: Normal Course - Re-evaluation Re-evalutation: 10/29/19 13:03 Again the wound edges are pink good approximation no redness no drainage no discharge no fever no nausea no vomiting. - Vital Signs Vital signs: Temp Pulse Resp BP Pulse Ox 99.0 F 95 16 135/80 H 97 10/29/19 12:37 10/29/19 12:37 10/29/19 12:37 10/29/19 12:37 10/29/19 12:37 Discharge - Discharge Clinical Impression: Visit for suture removal Condition: Good Disposition: HOME, SELF-CARE Additional Instructions: Follow-up with private doctor in 1 to 2 days for final radiology readings please return to the emergency room for any change worsening condition. Follow up with private M[facility] for all other routine health care needs.
== END 2019-10-29 13:14 | disposition home or self-care (01) ==
LOC: ER 12:31
DX: S61.512D Laceration without foreign body of left wrist, subsequent encounter (principal); X58.XXXD Exposure to other specified factors, subsequent encounter